=== PATIENT | female | born 1960 | race Caucasian/White ===

== ENCOUNTER → 2023-09-24 10:17 | Outpatient (REF) | payer BC, SELFPAY | LOC: HWRAD 10:17 | PROVIDERS: ATTENDING PHYSICIAN Family Medicine | DX: Z87.891 Personal history of nicotine dependence (principal) | CPT/HCPCS: 71271 ==

== ENCOUNTER 2024-01-07 06:07 | Emergency (ER) | payer BC, SELFPAY ==
[2024-01-07 06:12] VITALS: BP 180/89
--- NOTE | 2024-01-07 06:39 | ED.GENMED ---
History of Present Illness
General
Chief Complaint: Musculo-Skeletal Complaint
Time Seen by Provider: 01/07/24 06:27
History of Present Illness
History of Present Illness:
TIME OF INITIAL ENCOUNTER: 6:40 AM
HPI: The patient fell 1 week ago she tripped on pavers. She went to urgent care where she reports having x-rays that showed no sign of rib fracture and was told it was a bruise. She states she was intermittently taking Tylenol with codeine at her
primary care doctor put her on ibuprofen. The pain is now dramatically worsening to the point that it is now described as severe. The pain is primarily in the lower aspect of the right anterolateral chest wall.
EXAM:
GENERAL: Well appearing but in moderate to severe distress
CERVICAL SPINE: No midline c-spine tenderness with excellent AROM
HEAD: No evidence of craniofacial trauma
CHEST: Moderate to severe right lower anterolateral chest wall tenderness, normal heart sounds
LUNGS: Equal lung sounds, no respiratory distress
ABDOMEN: Borderline right upper quadrant abdominal tenderness, no peritoneal signs
EXTREMITIES: Normal active range of motion, no tenderness
NEURO: Excellent strength all extremities, appropriate mental status, normal speech/language, appears anxious
NUMBER AND COMPLEXITY OF PROBLEMS ADDRESSED AT THE ENCOUNTER
� Chronic conditions affecting care: Breast cancer, anxiety
� Acute Exacerbation and/or Progression of Chronic Illness: This is an acute problem
� Differential Diagnosis includes: Rib fracture, pneumothorax, chest wall contusion, abdominal wall contusion, liver laceration
AMOUNT AND/OR COMPLEXITY OF DATA TO BE REVIEWED AND ANALYZED
� I performed an independent evaluation of and my interpretation is:
EKG: Sinus 54, no acute ST abnormality
CT: I personally reviewed CT imaging of the chest abdomen pelvis and see no acute abnormality and agree with radiologist interpretation
X-rays:
Laboratory Studies: White count unremarkable, chemistries relatively unremarkable, alk phos slightly elevated
Other:
� Review of other/old records: I reviewed records, the patient had surgery for right rotator cuff 2021
� Clinical information was obtained by an independent historian: None needed
� Prescriptions/Medications Considered but not given:
� Further testing considered but not performed:
RISK OF COMPLICATIONS AND/OR MORBIDITY OR MORTALITY OF PATIENT MANAGEMENT
� Social determinants of health affecting care: Lives at home
� Discussion with other providers: None needed
� Escalation of care including admission/observation vs risk of discharge considered: Given severity of symptoms, CT imaging obtained
ANY OTHER UPDATES:
11 AM: The patient has been giving 2 rounds of narcotic analgesia. The pain is intermittently severe. Highly doubt cardiac etiology as the pain is far lateral and localized to the mid axillary line on the right side. EKG was obtained which was
unremarkable. Will send prescription for short course of narcotic analgesia.
Past History
Past History
ED Past Medical History: Cancer and Other
ED Past Surgical History: Gynecological (Lumpectomy for cancer)
Social History
Tobacco: Smoker (1/2 pack daily)
Alcohol: None
Personal:
Living: with family
Employment: Employed
Family History
Family History: Unable to obtain
Phy Exam
Physical Exam
Physical Exam:
See HPI
Course
Orders/Labs/Results
Orders:
Orders
01/07/24 06:44
CT Chest/abd/pel W Iv Cont Urgent
Comment:
Reason For Exam: severe pain R low chest / RUQ after trauma worseni
HYDROmorphone [Dilaudid] 1 mg IV NOW STA
Ondansetron Injectable [Zofran] 4 mg IV NOW STA
01/07/24 06:45
Ketorolac [Toradol] 15 mg IV NOW STA
01/07/24 07:09
Complete Blood Count/With Diff Urgent
Comprehensive Metabolic Panel Urgent
01/07/24 08:57
HYDROmorphone [Dilaudid] 1 mg IV NOW STA
01/07/24 10:08
Electrocardiogram (*1) Urgent
Reason for Study: Chest Pain
EKG- Treatment ONCE
Abnormal Lab Results
01/07/24
07:09
BUN 19 H mg/dl
(7-17)
Glucose 103 H mg/dl
(70-99)
Alkaline Phosphatase 142 H U/L
(38-126)
Total Protein 6.2 L g/dl
(6.3-8.2)
01/07/24 07:09
01/07/24 07:09
Vital Signs
Initial and Last Documented VS:
Initial Vital Signs
Temp Pulse BP Pulse Ox
97.8 F 68 180/89 97
01/07/24 06:12 01/07/24 06:12 01/07/24 06:12 01/07/24 06:12
Last Documented Vital Signs
Temp Pulse Resp BP Pulse Ox
97.8 F 58 14 131/68 95
01/07/24 06:12 01/07/24 10:30 01/07/24 10:30 01/07/24 10:00 01/07/24 10:30
*Critical Care Note
Total Time (30-74mins, 75-104mins- exclusive of procedures): Not Applicable
ED Attending Note
-
Portions of this chart may have been created with voice recognition software.� Occasional wrong word or��sound alike� substitutions may have occurred due to the inherent limitations of voice recognition software.
Discharge Plan
Departure
Patient Disposition: Home (Routine Discharge)
Date of Disposition: 01/07/24
Time of Disposition: 10:57
Patient with high blood pressure during this ER visit?: Yes
Discharge Problem:
Acute chest wall pain
Instructions: Blunt Chest Trauma (DC)
Prescriptions:
New
oxycodone-acetaminophen [Endocet] 5-325 mg tablet
1 tab PO Q8H PRN (Reason: Pain) Qty: 14 0RF
No Action
zolpidem 10 MG tablet
10 mg PO HS
Advair Inhaler
1 puff inhalation PRN PRN (Reason: difficulty breathing)
alprazolam 0.5 MG tablet
1 tab PO PRN PRN (Reason: anxiety)
modafinil 100 mg Tablet
100 mg PO DAILY
escitalopram oxalate 10 mg Tablet
10 mg PO QPM
guaifenesin [Mucinex] 600 mg Tablet Extended Release 12hr
600 mg PO Q12H PRN (Reason: mucous)
Referrals:
Carlos Eduadro Tony, DO [Family Provider] -
Activity Restrictions/Additional Instructions:
The exact cause of your pain is unclear but could be related to inflamed tissue of the chest wall. The CAT scan of the chest, abdomen, and pelvis shows no sign of serious injury such as rib fracture, lung contusion, or internal bleeding. The EKG
shows no sign of heart attack. I am sending a prescription for narcotic to your pharmacy.
Interventions
Interventions:
*Risk Screen - Suicide Last Done: 01/07/24 06:14
*Neglect/Abuse Screening Last Done: 01/07/24 06:15
*ED COVID-19 Vaccine History Last Done: 01/07/24 06:14
ED-Musculoskeletal Assessment Last Done: 01/07/24 07:21
Discharge Date and Time
Print Language: [place]
[2024-01-07] MEDS: TORADOL 15 MG IV (07:09)
[2024-01-07] MEDS: DILAUDID 1 MG IV ×2 (07:10→09:00)
[2024-01-07] MEDS: ZOFRAN 4 MG IV (07:10)
[2024-01-07 07:17] VITALS: BP 144/79
[2024-01-07 07:34] LABS: % Basophils 0.4 % (0-2); % Eosinophils 2.6 % (0-6); % Immature Granulocytes 0.1 % (0-0.5); % Lymphocytes 29.3 % (20.5-51.1); % Neutrophils 59.6 % (42.2-75.2); ALT (SGPT) 18 U/L (0-35); AST (SGOT) 21 U/L (14-36); Absolute Eosinophils 0.2 10^3/uL (0-0.7); Absolute Lymphocytes 2.1 10^3/uL (1.2-3.4); Absolute Monocytes 0.6 10^3/uL (0.1-0.6); Absolute Neutrophils 4.3 10^3/uL (1.4-6.5); Albumin 4.1 g/dl (3.5-5.0); Alkaline Phosphatase 142 U/L (38-126); Blood Urea Nitrogen 19 mg/dl (7-17); Calcium 9.8 mg/dl (8.4-10.2); Carbon Dioxide 27 mmol/L (22-30); Chloride 102 mmol/L (98-107); Glucose 103 mg/dl (70-99); Hematocrit 37.7 % (37.0-47.0); Hemoglobin 12.8 g/dL (12.0-16.0); Mean Corpuscular Hgb 28.8 pg (27.0-31.0); Mean Corpuscular Volume 84.7 fL (81.0-99.0); Mean Platelet Volume 9.4 fL (7.4-10.4); Nucleated Red Blood Cells % 0 %; Platelet Count 387 10^3/uL (130-400); Potassium 4.9 mmol/L (3.5-5.1); Red Blood Cell Count 4.45 10^6/uL (4.20-5.40); Red Cell Dist. Width 13.3 % (11.5-14.5); Sodium 137 mmol/L (135-145); Total Bilirubin 0.2 mg/dl (0.2-1.3); Total Protein 6.2 g/dl (6.3-8.2); White Blood Cell Count 7.3 10^3/uL (4.8-10.8); eGFR > 60.00
[2024-01-07 08:00] VITALS: BP 138/67
[2024-01-07 08:58] VITALS: BP 160/79
[2024-01-07 10:00] VITALS: BP 131/68
[2024-01-07 11:00] VITALS: BP 145/73
== END 2024-01-07 11:23 | disposition home or self-care (01) ==
LOC: EMR 06:07
PROVIDERS: EMERGENCY PHYSICIAN Emergency Medicine; FAMILY PHYSICIAN Family Medicine
DX: R07.89 Other chest pain (principal); W01.0XXA Fall on same level from slipping, tripping and stumbling without subsequent striking against object, initial encounter; F17.200 Nicotine dependence, unspecified, uncomplicated
CPT/HCPCS: 99285; 96374; 96375 ×2; 96376; 71260; 74177; 80053; 85025; 93005; Q9967

== ENCOUNTER → 2024-10-17 06:46 | Outpatient (REF) | payer BC, SELFPAY | LOC: HWRAD 06:46 | PROVIDERS: ATTENDING PHYSICIAN Family Medicine | DX: R74.8 Abnormal levels of other serum enzymes (principal) | CPT/HCPCS: 76700 ==